=== PATIENT | female | born 1930 | race Caucasian/White ===

== ENCOUNTER 2016-05-14 10:59 | Emergency (ER) | payer OTHER, MEDICARE ==
[~2016-05-14] VITALS: Ht 154.9 cm; Wt 52.2 kg
[~2016-05-14 10:59] MED LIST: AMLODIPINE BES2.5 M1 PO; CALCIUM 600600 M1 PO; CENTRUM COMPLE1 EACH PO; CHILDREN'S ASPI81 M1 PO; CRESTOR20 M2 PO; DOXYCYCLINE MO100 MG PO; FISH OIL CONC1000 MG PO; GLUCOSAMINE500 M1 PO; HYDROCORTI2.5 %/30 G TOP; TIMOPTIC10 ML OD
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
--- NOTE | 2016-05-14 11:59 | CT SCAN REPORT ---
CT HEAD WITHOUT IV CONTRAST CT CERVICAL SPINE WITHOUT IV CONTRAST INDICATION: Fall. COMPARISON: None available. TECHNIQUE: Multidetector CT acquisitions of the head and cervical spine were obtained without IV contrast. Multiplanar reformats were acquired and utilized for image interpretation. FINDINGS: HEAD: There is no intracranial hemorrhage, hydrocephalus, extra-axial surface collection, midline shift, or other herniation pattern. Whittaker to white matter differentiation is diffusely maintained without evidence of an evolved acute territorial infarct. The basilar cisterns are preserved. Mild high right parietal scalp swelling. Empty sella. No acute osseous abnormality. The paranasal sinuses and the mastoid air cells are well-aerated. CERVICAL SPINE: There is grade 1 degenerative anterolisthesis of C4 on C5 and C7 on T1. Severe disc volume loss at C5-C6 and moderate disc volume loss at C6-C7. Degenerative changes at the atlantodental interval. Multilevel facet arthropathy. There is a nondisplaced linear fracture involving the anterior C1 ring. The remainder of the C1 ring is intact. No additional fractures. Favored pannus adjacent to the dens mildly indents the ventral thecal sac at C1-C2. The craniocervical and atlantoaxial articulations are normal. There is no prevertebral soft tissue swelling. No significant soft tissue abnormality within the neck. The visualized lung apices are clear. IMPRESSION: 1. No acute intracranial abnormality. There is mild high right parietal scalp swelling. 2. There is a nondisplaced linear fracture involving the anterior C1 ring. The remainder of the C1 ring is intact. No additional fractures. Multilevel cervical spondylosis.
[2016-05-14 12:02] LABS: ABSOLUTE BASOPHIL COUNT 0 /CUMM (0.0-0.2); ABSOLUTE EOSINOPHIL COUNT 0.1 /CUMM (0.0-0.7); ABSOLUTE GRANULOCYTE CT 3.4 /CUMM (1.4-6.5); ABSOLUTE LYMPH COUNT 1.1 /CUMM (1.2-3.4); ABSOLUTE MONOCYTE COUNT 0.4 /CUMM (0.10-0.60); BASOPHIL % 0.4 % (0.0-2.0); EOSINOPHIL % 1.1 % (0-5); GRANULOCYTE % 69.1 % (42.2-75.2); MEAN CORPUSCULAR HGB 29.9 PG (27.0-31.0); MEAN CORPUSCULAR HGB CONC 33.9 G/DL (33.0-37.0); MEAN CORPUSCULAR VOLUME 88.2 FL (81.0-99.0); MEAN PLATELET VOLUME 7.3 FL (7.4-10.4); PLATELET COUNT 215 /CUMM (130-400); RBC DISTRIBUTION WIDTH 12.5 % (11.5-14.5); RED BLOOD CELL CT 5.33 /CUMM (4.20-5.40); WHITE BLOOD CELL COUNT 4.9 /CUMM (4.8-10.8)
[2016-05-14] MEDS ORDERED: VITAMIN D35000 UNI1 PO (12:05)
[2016-05-14] MEDS ORDERED: SYSTANE 0.3-0.415 ML OPH (12:06)
[2016-05-14 18:16] VITALS: BP 132/68
== END 2016-05-14 18:17 ==
LOC: ERH 10:59
PROVIDERS: Physician Assistant
DX: S12.091A Other nondisplaced fracture of first cervical vertebra, initial encounter for closed fracture (principal); I10 Essential (primary) hypertension; Z87.891 Personal history of nicotine dependence; W19.XXXA Unspecified fall, initial encounter
CPT/HCPCS: 2000; 93005; 93010

== ENCOUNTER 2016-09-07 22:08 | Emergency (ER) | payer OTHER, MEDICARE ==
[~2016-09-07] VITALS: Ht 157.5 cm; Wt 53.5 kg
[~2016-09-07 22:08] MED LIST changes: +SYSTANE 0.3-0.415 ML OPH; +VITAMIN D35000 UNI1 PO
[2016-09-07 22:13] VITALS: BP 156/66
[2016-09-07] MEDS ORDERED: [UNRECOGNIZED DRUG - OTHER] OD (22:42)
[2016-09-07] MEDS ORDERED: GLUCOSAMINE &1 EAC1 PO (22:43)
[2016-09-07] MEDS ORDERED: OMEGA 3-6-9 11200 MG PO (22:43)
[2016-09-07] MEDS ORDERED: CLOBETASOL PROP15 G1 TOP (22:44)
[2016-09-07] MEDS ORDERED: CYCLOBENZAPRINE10 M1 PO (22:55)
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
== END 2016-09-07 23:01 ==
LOC: ERH 22:08
DX: S16.1XXA Strain of muscle, fascia and tendon at neck level, initial encounter (principal); X58.XXXA Exposure to other specified factors, initial encounter; Y92.9 Unspecified place or not applicable; Y93.9 Activity, unspecified

== ENCOUNTER 2016-09-08 09:16 | Emergency (ER) | payer OTHER, MEDICARE ==
[~2016-09-08] VITALS: Ht 157.5 cm; Wt 52.6 kg
[~2016-09-08 09:16] MED LIST changes: +CLOBETASOL PROP15 G1 TOP; +CYCLOBENZAPRINE10 M1 PO; +GLUCOSAMINE &1 EAC1 PO; +OMEGA 3-6-9 11200 MG PO; +[UNRECOGNIZED DRUG - OTHER] OD
--- NOTE | 2016-09-08 09:37 | ED AMS/SEIZURE/WEAK/DIZZY ---
History of Present Illness General Chief Complaint: General Adult Stated Complaint: SEEN LAST NO BETTER WEAKNESS Source: patient, family Exam Limitations: no limitations Vital Signs & Intake/Output Vital Signs & Intake/Output Vital Signs Date Time Temp Pulse Resp B/P B/P Pulse O2 O2 Flow FiO2 Mean Ox Delivery Rate 09/08 1144 97.6 78 16 137/60 97 Room Air 09/08 1135 97.2 09/08 1118 97.2 78 18 141/63 98 Room Air 09/08 0958 98 09/08 0920 97.0 85 18 127/73 96 Room Air Room Air ED Intake and Output 09/09 0000 09/08 1200 Intake Total Output Total Balance Patient 116 lb Weight Weight Standing Scale Measurement Method Allergies Coded Allergies: fish derived (Severe, SEEING SPOTS - YELLOWFIN TUNA CAUSED THROMBOSIS 09/07/16) Reconcile Medications Amlodipine Besylate 2.5 MG TABLET 1 TAB PO DAILY BP (Reported) Aspirin (Children's Aspirin) 81 MG TAB.CHEW 1 TAB PO DAILY HEART/BLOOD ( Reported) Cholecalciferol (Vitamin D3) (Vitamin D3) 5,000 UNIT TABLET 1 TAB PO DAILY SUPPLEMENT (Reported) Clobetasol Propionate 0.05 % OINT...G. 1 [place] TOP AD REYNAUDS (Reported) apply to affected area(s) Cyclobenzaprine HCl 10 MG TABLET 1 TAB PO TID PRN MUSCLE SPASM as needed for muscle spasm Fish Oil/Borage/Flax/Om3,6,9#1 ([place] 3-6-9 1,200 MG Softgel) 1,200 MG CAPSULE 1 CAP PO DAILY SUPPLEMENT (Reported) Gluc 2KCL/Chondr/Jl Hy/Hy AC (Glucosamine & Chondroitin Cap) (Unknown Strength ) CAPSULE (Unknown Dose) PO BID SUPPLEMENT (Reported) Multivitamin/Iron/Folic Acid (Centrum Complete Multivit Tab) 18 MG IRON-400 MCG TABLET 1 TAB PO DAILY SUPPLEMENT (Reported) Propylene Glycol/Peg 400 (Systane 0.3-0.4% Eye Drops) 0.3 %-0.4 % DROPS 1 GTT OPH 4 TIMES/DAY DRY EYE (Reported) Rosuvastatin Calcium (Crestor) 20 MG TABLET 1 TAB PO DAILY CHOLESTEROL ( Reported) Sodium Chloride (Sochlor) 5 % OINT...G. 1 [place] OD QPM RIGHT EYE (Reported) Timolol Maleate (Timoptic) 0.5 % DROPS 1 DROP OD QAM RIGHT EYE (Reported) Triage Note: TRIAGE: 86 Y/O MALE PRESENTS C/O 2/10 PAIN BEHIND LEFT EAR. REPORTS WAS SEEN HERE LAST NIGHT AND EVALUATED BY DR THAO. PATIENT REPORTS, "HE SAID IT MIGHT BE A MUSCLE SPASM RADIATING DOWN TOWARD JAW." Triage Nurses Notes Reviewed? yes HPI: 86-year-old female arrived to triage to room 6 for evaluation of lightheadedness , weakness that she experienced with position changes this morning. He was seen in the emergency department last night for an evaluation of left neck pain. She experienced a T1 fracture after a fall a few months ago and has been going through physical therapy. She received Flexeril last night while in the emergency department and went home. She has not taken any further medications besides her amlodipine this morning. When she got up this morning she felt lightheaded, weakness all over her body. It lasted a few minutes but then went away. She denies any chest pain or chest pressure. She reports she has a history of a left bundle branch block and has had a workup which was negative. She denies any shortness of breath. Her neck pain is coming back at this time. (KAI GOLDSMITH APRN) Past History Travel History Traveled to [place] past 21 day No Medical History Any Pertinent Medical History? see below for history EENT: cataracts, glaucoma Cardiovascular: hypertension, hyperlipidemia Gastrointestinal: HEMORROIDS Surgical History Surgical History: non-contributory Psychosocial History What is your primary language Grenadian Tobacco Use: Never used ETOH Use: denies use Illicit Drug Use: denies illicit drug use Family History Hx Contributory? No (KAI GOLDSMITH APRN) Review of Systems Review of Systems Constitutional: Reports: see HPI, weakness. EENTM: Denies: no symptoms. Respiratory: Denies: no symptoms. Cardiovascular: Denies: no symptoms. GI: Denies: no symptoms. Genitourinary: Denies: no symptoms. Musculoskeletal: Reports: see HPI, neck pain. Skin: Denies: no symptoms. Neurological/Psychological: Reports: weakness, other (LIGHTHEADEDNESS). Hematologic/Endocrine: Denies: no symptoms. Immunologic/Allergic: Denies: no symptoms. (KAI GOLDSMITH APRN) Physical Exam Physical Exam General Appearance: well developed/nourished, no apparent distress, alert, awake , comfortable Head: atraumatic, normal appearance Eyes: Bilateral: normal appearance, PERRL, EOMI. Ears, Nose, Throat: normal pharynx, normal ENT inspection Neck: tender lateral (LEFT LATERAL TENDERNESS, TIGHT) Respiratory: normal breath sounds, chest non-tender, no respiratory distress Cardiovascular: regular rate/rhythm Gastrointestinal: normal bowel sounds, soft, non-tender Back: normal inspection, normal range of motion Extremities: normal range of motion Neurologic/Psych: no motor/sensory deficits, awake, alert, oriented x 3, normal gait, normal mood/affect Skin: intact, normal color, warm/dry Core Measures ACS in differential dx? No CVA/TIA Diagnosis: No Severe Sepsis Present: No Septic Shock Present: No (KAI GOLDSMITH APRN) Progress Differential Diagnosis: dehydration, electrolyte imbalance, SIDE EFFECT OF FLEXERIL Plan of Care: Orders Procedure Date/time Status COMPREHENSIVE METABOLIC PANEL 09/08 936 Complete CBC WITHOUT DIFFERENTIAL 09/08 936 Complete Laboratory Tests 09/08/16 0947: Anion Gap 13, Estimated GFR > 60, BUN/Creatinine Ratio 28.3 H, Glucose 94, Calcium 9.5, Total Bilirubin 1.0, AST 30, ALT 43, Alkaline Phosphatase 75, Total Protein 6.7, Albumin 4.1, Globulin 2.6, Albumin/Globulin Ratio 1.6, CBC w Diff NO MAN DIFF REQ, RBC 4.77, MCV 88.6, MCH 29.6, RDW 12.7, MPV 7.2 L, Gran % 43.2 , Lymphocytes % 43.7, Monocytes % 10.8 H, Eosinophils % 1.8, Basophils % 0.5, Absolute Granulocytes 1.0 L, Absolute Lymphocytes 1.0 L, Absolute Monocytes 0.2, Absolute Eosinophils 0, Absolute Basophils 0, PUBS MCHC 33.5 Initial ED EKG: none (DUE TO H/O LBBB) Comments: 11:35 AM lightheadedness has resolved. She was ambulatory to the bathroom twice with no symptoms or side effects. Instructed her not to take the entire 10 mg of Flexeril she was given. Instructions will say take half or a quarter of the pills for pain or neck strain. Ibuprofen 400 mg 3 times a day with food. dr. bernstein aware of patient. (KAI GOLDSMITH APRN) Departure Departure Time of Disposition: 1130 Disposition: HOME OR SELF CARE Condition: Stable Clinical Impression Primary Impression: Light-headed feeling Secondary Impressions: Neck strain Qualifiers: Encounter type: initial encounter Qualified Code: S16.1XXA - Strain of muscle, fascia and tendon at neck level, initial encounter Referrals: ERICH WORTHY,ADITYA Hayward (PCP/Family) Additional Instructions: Please do not take entire Flexeril pill. Take half or a quarter of it as needed for muscle spasm, tightness in neck. Take ibuprofen 400 mg 3 times a day with food. Follow-up with Dr. Tran this week. Use heating pad to left side of neck 3-4 times a day. Departure Forms: Customer Survey General Discharge Information (KAI GOLDSMITH APRN) PA/DRIVER ENGINEER Co-Sign Statement Statement: ED Attending supervision documentation- [x] I saw and evaluated the patient. I have also reviewed all the pertinent lab results and diagnostic results. I agree with the findings and the plan of care as documented in the PA's/DRIVER ENGINEER's documentation. [] I have reviewed the ED Record and agree with the PA's/DRIVER ENGINEER's documentation. [] Additions or exceptions (if any) to the PAs/DRIVER ENGINEER's note and plan are summarized below: [] (JUSTINE WORTHY,SHANNON Martinez)
[2016-09-08 09:59] LABS: ABSOLUTE BASOPHIL COUNT 0 /CUMM (0.0-0.2); ABSOLUTE EOSINOPHIL COUNT 0 /CUMM (0.0-0.7); ABSOLUTE MONOCYTE COUNT 0.2 /CUMM (0.10-0.60); BASOPHIL % 0.5 % (0.0-2.0); EOSINOPHIL % 1.8 % (0-5); GRANULOCYTE % 43.2 % (42.2-75.2); HEMATOCRIT 42.2 % (37-47); MEAN CORPUSCULAR HGB 29.6 PG (27.0-31.0); MEAN CORPUSCULAR HGB CONC 33.5 G/DL (33.0-37.0); MEAN CORPUSCULAR VOLUME 88.6 FL (81.0-99.0); MEAN PLATELET VOLUME 7.2 FL (7.4-10.4); PLATELET COUNT 202 /CUMM (130-400); RBC DISTRIBUTION WIDTH 12.7 % (11.5-14.5); RED BLOOD CELL CT 4.77 /CUMM (4.20-5.40); WHITE BLOOD CELL COUNT 2.2 /CUMM (4.8-10.8)
[2016-09-08 11:44] VITALS: BP 137/60
== END 2016-09-08 11:47 ==
LOC: ERH 09:16
PROVIDERS: Nurse Practitioner Family
DX: S16.1XXA Strain of muscle, fascia and tendon at neck level, initial encounter (principal); R42 Dizziness and giddiness; X58.XXXA Exposure to other specified factors, initial encounter
CPT/HCPCS: 96360

== ENCOUNTER 2016-11-05 10:17 | Inpatient (IN) | payer OTHER, MEDICARE ==
[~2016-11-05] VITALS: Ht 154.9 cm; Wt 51.7 kg
--- NOTE | 2016-11-05 10:24 | NUR ---
86 YO FEMALE BIBA FROM HOME. PT HAD A SYNCOPLE EPISODE AT HOME. PT HAS RECENT CSPINE FX ON Apr. PER GASKET MAKER PT NOTED TO BE IN 3RD DEGREE HEART BLOCK. PT ARRIVES ALERT AND ORIENTED X3. HR 30s ON MONITOR, EKG IN PROGRESS. PT DENIES SOB,CP,ABD PAIN. PT NOTED WITH HEMATOMA TO BACK OF HEAD. NO ACTIVE BLEEDING. DR BASS TO BEDSIDE ON ARRIVAL.
--- NOTE | 2016-11-05 10:34 | ED GENERAL ADULT ---
History of Present Illness General Chief Complaint: Fall Stated Complaint: FALL Source: patient, EMS Exam Limitations: no limitations Vital Signs & Intake/Output Vital Signs & Intake/Output 11/05/16 10:30 AM 86-year-old female presents to the emergency department for syncope. Prehospital EKG shows third-degree heart block. The onset of the symptoms was abrupt, the duration was just today, the severity is significant as her symptoms required her to come to the emergency department for care she denies chest pain. Allergies Coded Allergies: fish derived (Severe, SEEING SPOTS - YELLOWFIN TUNA CAUSED THROMBOSIS 09/07/16) Reconcile Medications Amlodipine Besylate 2.5 MG TABLET 1 TAB PO DAILY BP (Reported) Aspirin (Children's Aspirin) 81 MG TAB.CHEW 1 TAB PO DAILY HEART/BLOOD ( Reported) Cholecalciferol (Vitamin D3) (Vitamin D3) 5,000 UNIT TABLET 1 TAB PO DAILY SUPPLEMENT (Reported) Clobetasol Propionate 0.05 % OINT...G. 1 [place] TOP AD REYNAUDS (Reported) apply to affected area(s) Cyclobenzaprine HCl 10 MG TABLET 1 TAB PO TID PRN MUSCLE SPASM as needed for muscle spasm Fish Oil/Borage/Flax/Om3,6,9#1 ([place] 3-6-9 1,200 MG Softgel) 1,200 MG CAPSULE 1 CAP PO DAILY SUPPLEMENT (Reported) Gluc 2KCL/Chondr/Jl Hy/Hy AC (Glucosamine & Chondroitin Cap) (Unknown Strength ) CAPSULE (Unknown Dose) PO BID SUPPLEMENT (Reported) Multivitamin/Iron/Folic Acid (Centrum Complete Multivit Tab) 18 MG IRON-400 MCG TABLET 1 TAB PO DAILY SUPPLEMENT (Reported) Propylene Glycol/Peg 400 (Systane 0.3-0.4% Eye Drops) 0.3 %-0.4 % DROPS 1 GTT OPH 4 TIMES/DAY DRY EYE (Reported) Rosuvastatin Calcium (Crestor) 20 MG TABLET 1 TAB PO DAILY CHOLESTEROL ( Reported) Sodium Chloride (Sochlor) 5 % OINT...G. 1 [place] OD QPM RIGHT EYE (Reported) Timolol Maleate (Timoptic) 0.5 % DROPS 1 DROP OD QAM RIGHT EYE (Reported) Triage Note: 86 YO FEMALE BIBA FROM HOME. PT HAD S SYNCOPLE EPISODE AT HOME. PT HAS RECENT CSPINE FX ON Apr. PER JAVA MANAGER PT NOTED TO BE IN 3RD DEGREE HEART BLOCK. 30s ON MONITOR, EKG IN PROGRESS. PT DENIES SOB,CP,ABD PAIN. PT NOTED WITH HEMATOMA TO BACK OF HEAD. NO ACTIVE BLEEDING. DR BASS TO BEDSIDE ON ARRIVAL. Triage Nurses Notes Reviewed? yes HPI: patient admitted to ICU Past History Travel History Traveled to [place] past 21 day No Medical History Any Pertinent Medical History? see below for history Neurological: NONE EENT: cataracts, glaucoma Cardiovascular: hypertension, hyperlipidemia Respiratory: NONE Gastrointestinal: HEMORROIDS Hepatic: NONE Renal: NONE Musculoskeletal: NONE Psychiatric: NONE Endocrine: NONE Blood Disorders: NONE Cancer(s): NONE [employer] SECURITY/Reproductive: NONE Surgical History Surgical History: non-contributory Psychosocial History What is your primary language Moroccan Tobacco Use: Quit >30 days ago ETOH Use: denies use Illicit Drug Use: denies illicit drug use Family History Hx Contributory? No Review of Systems Review of Systems Constitutional: Reports: no symptoms. EENTM: Reports: no symptoms. Respiratory: Reports: no symptoms. Cardiovascular: Reports: see HPI. Denies: chest pain. GI: Reports: no symptoms. Genitourinary: Reports: no symptoms. Musculoskeletal: Reports: no symptoms. Skin: Reports: no symptoms. Neurological/Psychological: Reports: no symptoms. Hematologic/Endocrine: Reports: no symptoms. Immunologic/Allergic: Reports: no symptoms. All Other Systems: Reviewed and Negative Physical Exam Physical Exam General Appearance: alert, awake, anxious, moderate distress Head: contusions, tenderness Eyes: Bilateral: normal appearance, PERRL, EOMI. Ears, Nose, Throat: normal pharynx Neck: limited range of motion Respiratory: chest non-tender, no respiratory distress Cardiovascular: BRADYCARDIA Peripheral Pulses: 3+ radial (R), 3+ radial (L) Gastrointestinal: non-tender Back: decreased range of motion Extremities: pedal edema Neurologic/Psych: awake, alert, oriented x 3 Skin: intact, normal color, warm/dry Core Measures ACS in differential dx? No CVA/TIA Diagnosis: No Severe Sepsis Present: No Septic Shock Present: No Progress Differential Diagnoses I considered the following diagnoses in my evaluation of the patient: [acs, sss, adverse drug reaction, lyme, conduction disease] Plan of Care: Orders Procedure Date/time Status Add-on Test (ER Only) 11/05 1045 Active OXYGEN SETUP (GEN) 11/05 1038 Active Telemetry/Respiratory Therapy Instructor 11/[address] HEAD WO IV CONTRAST 11/[address] CERV SPINE WO IV CONTRAST 11/05 1038 Active PARTIAL THROMBOPLASTIN TIME 11/05 1030 Active PROTHROMBIN TIME 11/05 1030 Active TROPONIN LEVEL 11/05 1026 Active COMPREHENSIVE METABOLIC PANEL 11/05 1026 Active CBC WITHOUT DIFFERENTIAL 11/05 1026 Complete EKG 11/05 1021 Active Laboratory Tests 11/05/16 1038: PT Cancelled, INR Cancelled 11/05/16 1030: Anion Gap 12, Estimated GFR > 60, BUN/Creatinine Ratio 26.7 H, Glucose 160 H, Calcium 9.7, Total Bilirubin 0.9, AST 38 H, ALT 52, Alkaline Phosphatase 86, Troponin I Pending, Total Protein 6.9, Albumin 4.5, Globulin 2.4, Albumin/ Globulin Ratio 1.9, CBC w Diff NO MAN DIFF REQ, RBC 4.61, MCV 88.8, MCH 30.2, RDW 12.9, MPV 7.6, Gran % 58.1, Lymphocytes % 34.2, Monocytes % 6.0, Eosinophils % 1.2, Basophils % 0.5, Absolute Granulocytes 2.8, Absolute Lymphocytes 1.7, Absolute Monocytes 0.3, Absolute Eosinophils 0.1, Absolute Basophils 0, PUBS MCHC 33.9 Initial ED EKG: THIRD DEGREE HEART BLOCK Departure Departure Disposition: STILL A PATIENT Condition: Stable Clinical Impression Primary Impression: Bradycardia Secondary Impressions: Third degree heart block Referrals: ERICH WORTHY,ADITYA Hayward (PCP/Family) Departure Forms: Customer Survey General Discharge Information Admission Note Spoke With: GARTH WORTHY,[facility] Documentation of Exam: Documentation of any treatments & extenuating circumstances including Concerns Regarding Discharge (functional status, medication knowledge or non-compliance, living conditions, etc.) that warrant an admission rather than observation: [ Patient needs admission to the ICU for telemetry monitoring, serial troponins, possible transcutaneous pacemaker, pacemaker placement] Critical Care Note Critical Care Note Critical Care Time: 30-74 min
[2016-11-05 10:40] LABS: ABSOLUTE BASOPHIL COUNT 0 /CUMM (0.0-0.2); ABSOLUTE EOSINOPHIL COUNT 0.1 /CUMM (0.0-0.7); ABSOLUTE GRANULOCYTE CT 2.8 /CUMM (1.4-6.5); ABSOLUTE LYMPH COUNT 1.7 /CUMM (1.2-3.4); ABSOLUTE MONOCYTE COUNT 0.3 /CUMM (0.10-0.60); BASOPHIL % 0.5 % (0.0-2.0); EOSINOPHIL % 1.2 % (0-5); GRANULOCYTE % 58.1 % (42.2-75.2); MEAN CORPUSCULAR HGB 30.2 PG (27.0-31.0); MEAN CORPUSCULAR HGB CONC 33.9 G/DL (33.0-37.0); MEAN CORPUSCULAR VOLUME 88.8 FL (81.0-99.0); MEAN PLATELET VOLUME 7.6 FL (7.4-10.4); PLATELET COUNT 192 /CUMM (130-400); RBC DISTRIBUTION WIDTH 12.9 % (11.5-14.5); RED BLOOD CELL CT 4.61 /CUMM (4.20-5.40); WHITE BLOOD CELL COUNT 4.9 /CUMM (4.8-10.8)
--- NOTE | 2016-11-05 10:43 | NUR ---
XRAY AT THE BEDSIDE
--- NOTE | 2016-11-05 10:50 | NUR ---
PT TO CT SCAN VIA STRETCHER ON BUCKLE ATTACHING MACHINE OPERATOR WITH LUL ORTEGA
--- NOTE | 2016-11-05 10:58 | RADIOLOGY REPORT ---
EXAMINATION: XR PORTABLE CHEST CLINICAL INFORMATION: Syncope. COMPARISON: Chest 2006 TECHNIQUE: Portable frontal view of the chest was obtained. FINDINGS: Both lungs are well-expanded and clear of acute pneumonic process. The heart size and pulmonary vascularity is normal. No gross bony abnormality seen except for mild spondylosis. IMPRESSION: Unremarkable chest exam.
--- NOTE | 2016-11-05 11:03 | NUR ---
LAB NEEDS RE DRAW OF BLUE TOP TUBE
--- NOTE | 2016-11-05 11:15 | NUR ---
TAKEN TO CT SCAN, ON STRETCHER AND MONITOR PT PLEASANT, CONVERSANT THROUGHOUT. STATES SHE HAD A FRACTURED NECK IN APR AND WITH IN A COLLAR FOR 12 WEEKS; BELIEVES THE COLLAR CAME OFF IN SEPTEMBER AND PT STATES SHE WAS DOING WELL UNTIL FALL THIS MORNING. DENIES ANY CHEST PAIN OR SOB. HEART RATE RANGES FROM 26-38 ON MONITOR. BACK TO ROOM, DR BASS AT BEDSIDE FOR RE EVAL
--- NOTE | 2016-11-05 11:19 | NUR ---
REDRAW DONE BY THIS MST AND SENT TO LAB (BLUE)
--- NOTE | 2016-11-05 11:26 | NUR ---
DR BASS AT BEDSIDE - TESTED PACERMAKER TO GET CAPTURE IN THE EVENT PT DETERIORATES. PT CAPTURES WITH 100MEV. PACED FOR APPROX 1 MIN AND THEN STOPPED. HR BACK TO 20'S-30'S. REMAINS AWAKE, ALERT AND CONVERSANT DR LIANG AT THE BEDSIDE DR HERRMANN ALSO AT THE BEDSIDE ANTICIPATE TRANSFER TO OR FOR PACEMAKER PLACEMENT
--- NOTE | 2016-11-05 11:35 | CT SCAN REPORT ---
EXAMINATION: CT HEAD AND CT CERVICAL SPINE. CLINICAL INFORMATION: Syncope, head trauma. COMPARISON: CT cervical spine 07/27/2016. CT head 05/14/2016. TECHNIQUE: 5 mm thin axial into 2.5 mm thin coronal images of brain were obtained. Subsequently 2.5 mm thin axial and reformatted 2 mm thin coronal and sagittal images of cervical spine were performed. Dose 845. FINDINGS: Brain: There is no acute intra-axial, extra-axial bleed, masses or midline shift. The lateral ventricles are symmetrical in size and configuration but mildly enlarged. Mild periventricular hypodensity seen in both cerebral hemispheres without mass effect. Bone windows reveal no calvarial abnormality. Bilateral paranasal sinuses and bilateral mastoid air sinuses are well-aerated. There is no scalp soft tissue swelling. Cervical spine: There is mild straightening of cervical lordosis. There is grade 1 anterolisthesis C4 over C5 and C7 over T1. Mild loss of C5-C6 and C6-C7 disc heights with spondylosis is noted. Moderate bilateral C3-C4, right C4-C5 and C5-C6 facet joint arthropathy is noted. There is no visible acute fracture, dislocation or subluxation. The prevertebral and paravertebral soft tissues are normal. The airway throughout the neck is widely patent. The lung apices are clear. Visualized bilateral and parotid glands are unremarkable. There is punctate calcifications in the right submandibular gland. IMPRESSION: No acute intracranial process seen. Age-related cerebral atrophy with chronic small vessel ischemic changes. Grade 1 anterolisthesis C4 over C5 and C7 over T1. There are degenerative disc changes with posterior spondylosis C5-C6 and C6-C7 disc levels. No visible acute fracture or dislocation seen in cervical spine.
--- NOTE | 2016-11-05 11:45 | Admission Certification ---
Admission Certification Certification Statement - As attending physician, I certify that at the time of - admission, based on clinical presentation, severity of - symptoms, need for further diagnostic testing and - therapeutic interventions, and risk of adverse outcomes - without in-hospital treatment, in my clinical assessment, - this patient requires an acute hospital stay for a minimum - of two nights or longer. I have also considered psychsocial - factors such as support system, advanced age, financial - issues, cognitive issues, and failed out-patient treatments, - past re-admission history, safety of patient, and lack of - compliance as applicable. Specific rationale supporting this admission is: Syncope with advanced heart block; requires ICU telemetry monitoring and Pacemaker Rohan Helms MD [facility]
[2016-11-05 11:50] LABS: PT 12.1 SEC (9.4-12.5); PTT 31 SEC (25-37)
--- NOTE | 2016-11-05 11:54 | NUR ---
CARNEY PLACED PER MD BASS. IMMEDIATELY DRAINING 100 ML CLEAR YELLOW URINE. PRE OP SCRUB COMPLETED PT UNABLE TO REMOVE 2 RINGS ON L 4TH FINGER. OR TO BE NOTIFIED OF SAME NECKLACE AND EARRING AND 1 RING HANDED TO DAUGHTER IN LAW AT THE BEDSIDE AWAITING OR
--- NOTE | 2016-11-05 11:59 | NUR ---
DR BASS INTO REVIEW RESULTS OF CT SCAN C COLLAR REMOVED BY
--- NOTE | 2016-11-05 12:30 | NUR ---
UNABLE TO GET URINE SAMPLE FROM CARNEY PRIOR TO GOING TO OR. URINE ONLY IN TUBING OF CARNEY. TRANSPORTED TO OR ON MONITOR WITH RN RC KULKARNI AND THIS RN PT REMAINS ALERT AND ORIENTED, CONVERSANT THROUGHOUT WITH NO COMPLAINTS HR 20'S-30'S. REPORT GIVEN TO OR STAFF; ANESTHESIA STAFF ALL PAPERWORK PROVIDED TO STAFF OR STAFF AWARE PT HAS WEDDING BAND IN PLACE.
--- NOTE | 2016-11-05 14:57 | RADIOLOGY REPORT ---
EXAMINATION: XR PORTABLE CHEST CLINICAL INFORMATION: Follow-up pacemaker insertion. COMPARISON: Preprocedure exam 11/05/2016 10:35 AM TECHNIQUE: Portable frontal view of the chest was obtained. Exam assigned to this succession number is labeled 2:24 PM FINDINGS: There is a new left-sided prepectoral dual-lead pacer identified with its tips overlying the right atrium and right ventricle via a left subclavian approach. The cardiomediastinal silhouette is otherwise stable appearing. The lungs and pleural spaces appear clear without evidence of congestion, consolidation, or significant appearing effusion or atelectasis. There is no evidence of pneumothorax or pulmonary edema. Included osseous structures demonstrate fairly advanced degenerative changes in the glenohumeral joints bilaterally. IMPRESSION: Post procedural changes without evidence of complication.
--- NOTE | 2016-11-05 15:11 | RADIOLOGY REPORT ---
EXAMINATION:\H\ \N\Chest, C-arm imaging CLINICAL INFORMATION: Pacemaker placement. COMPARISON: Chest x-ray 11/05/2016 TECHNIQUE: C-arm imaging of chest. Dose: 1.34 mgym2 Fluoroscopy time: 8.2 minutes. Number of images: 3 FINDINGS: Spot views obtained over the cardiac silhouette shows placement of dual-lead pacemaker in right atrium and right ventricle. IMPRESSION: Placement of pacemaker leads in right atrium and right ventricle.
--- NOTE | 2016-11-05 15:15 | History & Physical ---
HARSH CARRILLO 11/05/16 1503: General Information and HPI Source of Information: patient Exam Limitations: no limitations History of Present Illness: She is 86 year old very pleasant lady with PMH of HTN, HLD and Arthritis BIBA after she had a syncopal episode at home. According to patient she was arranging her clothes and all of a sudden she felt funny and next thing she remembers found herself on floor. She does not remember exactly presyncopal symptoms but after waking up she was feeling better dizzy. per patient she fell down on her back and hit back of her head. Her called 911. Per paramedics EKG showed complete heart block. Upon arrival to ER her temperature was 97.5, pulse 26, respiratory rate 18, blood pressure 112/15 oxygen saturation 97% on room air. She was alert, awake and oriented 3. She denied any chest pain, shortness of breath, abdominal pain or nausea. Labs including CBC, CMP and Coags unremarkable. 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 CXR was unremarkable. CT head and cervical spine CT did not show any acute process. After returning from CT scan pacer pads were applied. Paced for 1 min and HR again dropped down to 20-30. Jim Helms MD was called and patient was emergently taken to or for permanent pacemaker placement. I saw the patient in PACU after pacemaker placement. She was complaining of mild pain at the site of pacemaker placement. Currently she denies any chest pain or discomfort, dizziness or lightheadedness, nausea. She also denies any headache, vision changes, weakness or numbness of any part of her body, any change in urinary or bowel habits. She lives with her . Independent for ADLs and IADLs. She has 5 kids. She is a retired RN. Surgical history significant for cholecystectomy, hysterectomy and bilateral cataract surgery. She smoked at young age and quit 60 years ago. Drinks wine occasionally. Denies use of illicit drugs. Please note patient had syncopal episode this year in April while she was on exercise machine. According to patient at that time she had a funny feeling, fell down and lost consciousness. She had C-spine fracture at that time. Had a C-spine collar for [address] Woo. She follows Omar Willis MD as an outpatient. She had EKG, ultrasound and Holter monitor for 24 hours in August this year and no significant abnormality was noted. Allergies/Medications Allergies: Coded Allergies: fish derived (Severe, SEEING SPOTS - YELLOWFIN TUNA CAUSED THROMBOSIS 09/07/16) Home Med list Amlodipine Besylate 2.5 MG TABLET 1 TAB PO DAILY BP (Reported) Aspirin (Children's Aspirin) 81 MG TAB.CHEW 1 TAB PO DAILY HEART/BLOOD ( Reported) Cholecalciferol (Vitamin D3) (Vitamin D3) 5,000 UNIT TABLET 1 TAB PO DAILY SUPPLEMENT (Reported) Fish Oil/Borage/Flax/Om3,6,9#1 ([place] 3-6-9 1,200 MG Softgel) 1,200 MG CAPSULE 1 CAP PO DAILY SUPPLEMENT (Reported) Gluc 2KCL/Chondr/Jl Hy/Hy AC (Glucosamine & Chondroitin Cap) (Unknown Strength ) CAPSULE (Unknown Dose) PO BID SUPPLEMENT (Reported) Multivitamin/Iron/Folic Acid (Centrum Complete Multivit Tab) 18 MG IRON-400 MCG TABLET 1 TAB PO DAILY SUPPLEMENT (Reported) Propylene Glycol/Peg 400 (Systane 0.3-0.4% Eye Drops) 0.3 %-0.4 % DROPS 1 GTT OPH 4 TIMES/DAY DRY EYE (Reported) Rosuvastatin Calcium (Crestor) 20 MG TABLET 1 TAB PO DAILY CHOLESTEROL ( Reported) Sodium Chloride (Sochlor) 5 % OINT...G. 1 [place] OD QPM RIGHT EYE (Reported) Timolol Maleate (Timoptic) 0.5 % DROPS 1 DROP OD QAM RIGHT EYE (Reported) Compliance With Home Meds: GOOD Past History Travel History Traveled to [place] past 21 day No Medical History Neurological: NONE EENT: cataracts, glaucoma Cardiovascular: hypertension, hyperlipidemia Respiratory: NONE Gastrointestinal: HEMORROIDS Hepatic: NONE Renal: NONE Musculoskeletal: NONE Psychiatric: NONE Endocrine: NONE Blood Disorders: NONE Cancer(s): NONE HISTOLOGY TECHNICIAN/Reproductive: NONE Surgical History Surgical History: cholecystectomy, hysterectomy, cataract sx Past Family/Social History Family History Relations & Conditions if any MOTHER (DM, HTN). FATHER (stroke). Grandfather (DM). Psychosocial History Who Do You Live With? spouse Services at Home: None Primary Language: Chinese Smoking Status: Former Smoker ETOH Use: occasional use Illicit Drug Use: denies illicit drug use Functional Ability ADLs Independent: dressing, eating, toileting, bathing. Ambulation: independent IADLs Independent: shopping, housework, finances, food prep, telephone, transportation , medication admin. Employment History Employment Retired Profession/Employer controls project engineer of Systems Review of Systems Constitutional: Reports: see HPI. Exam & Diagnostic Data Last 24 Hrs of Vital Signs/I&O Vital Signs Date Time Temp Pulse Resp B/P B/P Pulse O2 O2 Flow FiO2 Mean Ox Delivery Rate 11/05 1140 97.5 26 18 112/50 94 Room Air 11/05 1128 97 Room Air Intake & Output 11/05 1600 11/05 0800 11/05 0000 Intake Total Output Total Balance Patient 114 lb Weight Weight Reported by Patient Measurement Method Physical Exam General Appearance Alert, Oriented X3, Cooperative, No Acute Distress Skin lipoma on back of her right shoulder HEENT dry mucous membranes Neck Supple Cardiovascular Regular Rate, No Murmurs Lungs Clear to Auscultation Abdomen Normal Bowel Sounds, Soft, No Tenderness Neurological Normal Speech, Strength at 5/5 X4 Ext, Sensation Intact, Cranial Nerves 3-12 NL Extremities No Edema Last 24 Hrs of Labs/Tj: Laboratory Tests 11/05/16 1116: PT 12.1, INR 1.15, APTT 31 11/05/16 1038: PT Cancelled, INR Cancelled 11/05/16 1030: Anion Gap 12, Estimated GFR > 60, BUN/Creatinine Ratio 26.7 H, Glucose 160 H, Calcium 9.7, Total Bilirubin 0.9, AST 38 H, ALT 52, Alkaline Phosphatase 86, Troponin I < 0.01, Total Protein 6.9, Albumin 4.5, Globulin 2.4, Albumin/ Globulin Ratio 1.9, CBC w Diff NO MAN DIFF REQ, RBC 4.61, MCV 88.8, MCH 30.2, RDW 12.9, MPV 7.6, Gran % 58.1, Lymphocytes % 34.2, Monocytes % 6.0, Eosinophils % 1.2, Basophils % 0.5, Absolute Granulocytes 2.8, Absolute Lymphocytes 1.7, Absolute Monocytes 0.3, Absolute Eosinophils 0.1, Absolute Basophils 0, PUBS MCHC 33.9 Microbiology 11/05 1215 URINE ROUT: Urine Culture - ORD Assessment/Plan Assessment: She is 86 year old very pleasant lady with PMH of HTN, HLD and Arthritis. Upon arrival to ER her temperature was 97.5, pulse 26, respiratory rate 18, blood pressure 112/15 oxygen saturation 97% on room air. She was alert, awake and oriented 3. She denied any chest pain, shortness of breath, abdominal pain or nausea. Labs including CBC, CMP and Coags unremarkable. 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 CXR was unremarkable. CT head and cervical spine CT did not show any acute process. Complete heart block status post dual chamber pacemaker placement. Not on any AV marcos blockers at home. Postprocedure EKG showed paced rhythm. PLAN * Close ICU monitoring * Watch for arrhythmias * Serial EKGs and troponins * ? Echocardiogram * Follow cardio recommendations * Adequate pain management * Will hold all of her home medications for now * Check TFTs * Heart healthy diet * Alps for DVT prophylaxis * DNR/DNI (Organ Donor) As Ranked By This Provider Problem List: 1. Third degree heart block 2. Bradycardia Core Measures/Miscellaneous Acute Coronary Syndrome ACS Diagnosis: No Cerebrovascular Accident CVA/TIA Diagnosis: No Congestive Heart Failure CHF Diagnosis: No VTE (View Protocol) VTE Risk Factors: Acute medical illness, Age > 40 [facility] prophylaxis d/t: No contraindications No VTE Pharm Prophylaxis d/t: No contraindications VTE Diagnosis: No VTE Type: NONE VTE Confirmed by (Test): NONE Sepsis (View Protocol) Severe Sepsis Present: No Septic Shock Septic Shock Present: No Miscellaneous Documentation Attending Case Discussed With: Dr. Helms Primary Care Physician: ADITYA JUNG MD Patient sees these Specialists Dr. Omar Perez Level of Patient Care: Critical Care (CRI) Consults Needed: Consulting Specialty: Cardiology GARTH WORTHY,[facility] 11/05/16 5124: Attending MD Review Statement Attending Statement Attending Statement: examined this patient, discuss w/resident/PA/ROLLER SKATER, discussed with family, reviewed EMR data (avail), discussed with nursing, reviewed images, amended to note (see my note)
[2016-11-05 16:00] VITALS: BP 139/68
--- NOTE | 2016-11-05 16:06 | PN- Att Addend ---
Attending Addendum Attending Brief Note I have personally seen and examined this patient earlier today in the emergency room. The patient presented with an episode of sudden syncope and was found to have evidence of high-grade heart block; initially Mobitz type 2 on the ECG with periods of complete heart block with bradycardia on telemetry monitoring. I personally had an extensive discussion with the patient and her family regarding the risks versus benefits of permanent pacemaker and we are all in agreement that the benefits of a permanent pacemaker clearly outweigh the risks at this time. I have personally discussed the case with Dr. Paulino and Dr. Gonzáles and our plan is to proceed with permanent pacemaker today. Of note the patient is not on any outpatient medications that would be contributing to her conduction disease and review of previous medical records does show evidence of prior conduction disease which has likely now progressed. She is fortunately hemodynamically stable and will be closely monitored following the permanent pacemaker. She will be maintained on transcutaneous pacer pads until the permanent pacemaker is completed. Time spent in critical care was approximately 40 minutes. Rohan Helms MD [facility]
--- NOTE | 2016-11-05 17:00 | PN- Thoracic Surgery ---
Subjective Subjective: POST OP CHECK No cp/sob/palpitations. HR in 80s, paced. some discomfort at incision. no other complaints Objective Vital Signs and I&Os Vital Signs Date Time Temp Pulse Resp B/P B/P Pulse O2 O2 Flow FiO2 Mean Ox Delivery Rate 11/05 1140 97.5 26 18 112/50 94 Room Air 11/05 1128 97 Room Air Intake & Output 11/05 1600 11/05 0800 11/05 0000 11/04 1600 11/04 0800 11/04 0000 Intake Total Output Total Balance Patient 114 lb Weight Weight Reported by Patient Measurement Method Physical Exam: GEN: NAD CARD: s1s2 rate in 80s PULM: CTAB EXT: calves soft nt bl Assessment/Plan Assessment/Plan A: POD0 sp PPM insertion for complete heart block, now with paced rhythm in 80s. P: prn pain meds for incisional pain abx x23hr ppx postop care per primary team will dw attending Core Measures/Miscellaneous Venous Thromboembolism VTE Risk Factors: Acute medical illness VTE Contraindications: No Contraindications VTE Diagnosis: No VTE Type: NONE VTE Confirmed by (Test): NONE Beta Víctor Is Beta Víctor a Home Med? No Antibiotics Is Patient on Antibiotics? Yes If Yes: prophylaxis
--- NOTE | 2016-11-05 17:13 | Cons- Thoracic Surgery ---
General Information and HPI Consulting Request Date of Consult: 11/05/16 Requested By: Jim Helms MD Reason for Consult: Third-degree heart block for permanent pacemaker placement Source of Information: patient, family, old records, PCP Exam Limitations: no limitations History of Present Illness: The patient is an 86-year-old woman who came in after syncopal episode at home. She was working and laundry and found herself on the floor. She fell down and did hit the back of her head. She is brought to the emergency room and found to be in third-degree heart block. She has a ventricular rate of 25. Emergency cardiothoracic surgical evaluation is asked for permanent pacemaker placement. Allergies/Medications Allergies: Coded Allergies: fish derived (Severe, SEEING SPOTS - YELLOWFIN TUNA CAUSED THROMBOSIS 09/07/16) Home Med List: Amlodipine Besylate 2.5 MG TABLET 1 TAB PO DAILY BP (Reported) Aspirin (Children's Aspirin) 81 MG TAB.CHEW 1 TAB PO DAILY HEART/BLOOD ( Reported) Cholecalciferol (Vitamin D3) (Vitamin D3) 5,000 UNIT TABLET 1 TAB PO DAILY SUPPLEMENT (Reported) Fish Oil/Borage/Flax/Om3,6,9#1 ([place] 3-6-9 1,200 MG Softgel) 1,200 MG CAPSULE 1 CAP PO DAILY SUPPLEMENT (Reported) Gluc 2KCL/Chondr/Jl Hy/Hy AC (Glucosamine & Chondroitin Cap) (Unknown Strength ) CAPSULE (Unknown Dose) PO BID SUPPLEMENT (Reported) Multivitamin/Iron/Folic Acid (Centrum Complete Multivit Tab) 18 MG IRON-400 MCG TABLET 1 TAB PO DAILY SUPPLEMENT (Reported) Propylene Glycol/Peg 400 (Systane 0.3-0.4% Eye Drops) 0.3 %-0.4 % DROPS 1 GTT OPH 4 TIMES/DAY DRY EYE (Reported) Rosuvastatin Calcium (Crestor) 20 MG TABLET 1 TAB PO DAILY CHOLESTEROL ( Reported) Sodium Chloride (Sochlor) 5 % OINT...G. 1 [place] OD QPM RIGHT EYE (Reported) Timolol Maleate (Timoptic) 0.5 % DROPS 1 DROP OD QAM RIGHT EYE (Reported) Current Medications: Current Medications Sig/Beth Start time Last Medication Dose Route Stop Time Status Admin Acetaminophen 650 MG Q6P PRN 11/05 1600 AC PO Cefazolin Sodium 2 GM IQ8 11/05 2200 AC N/A 1 UNIT IV 11/06 0829 Oxycodone/ 1 TAB Q6P PRN 11/05 1630 AC Acetaminophen PO Oxycodone/ 2 TAB Q6P PRN 11/05 1630 AC Acetaminophen PO Past History Medical History Neurological: NONE EENT: cataracts, glaucoma Cardiovascular: hypertension, hyperlipidemia Respiratory: NONE Gastrointestinal: HEMORROIDS Hepatic: NONE Renal: NONE Musculoskeletal: NONE Psychiatric: NONE Endocrine: NONE Blood Disorders: NONE Cancer(s): NONE TIME STUDY CLERK/Reproductive: NONE Surgical History Pertinent Surgical History: cholecystectomy, hysterectomy, cataract sx Family History Relations & Conditions If Any: MOTHER (DM, HTN). FATHER (stroke). Grandfather (DM). Psychosocial History Who Do You Live With? spouse Services at Home: None Primary Language: [place] Citizen Smoking Status: Former Smoker ETOH Use: occasional use Illicit Drug Use: denies illicit drug use Functional Ability ADLs Independent: dressing, eating, toileting, bathing. Ambulation: independent IADLs Independent: shopping, housework, finances, food prep, telephone, transportation , medication admin. Employment History Employment: Retired Profession/Employer: associate accountant of Systems Review of Systems: Review of systems notable for the syncopal episode. She had no presyncopal warning. She woke up on the floor. She is complaining now of some pain in the back of her head. She had a second episode when she was turned in the CT scanner evaluating her with a head CT. She has had no palpitations. She had no nausea or vomiting. She has had no chest pain. The respiratory 12 point review of systems unremarkable. Exam & Diagnostic Data Vital Signs and I&O Vital Signs Date Time Temp Pulse Resp B/P B/P Pulse O2 O2 Flow FiO2 Mean Ox Delivery Rate 11/05 1140 97.5 26 18 112/50 94 Room Air 11/05 1128 97 Room Air Intake & Output 11/05 1600 11/05 0800 11/05 0000 11/04 1600 11/04 0800 11/04 0000 Intake Total Output Total Balance Patient 114 lb Weight Weight Reported by Patient Measurement Method Physical Exam: On physical examination she is lying in bed with a neck brace in place. She is alert and oriented and very engaging and interactive. Her skin is warm and well perfused no suspicious lesions noted. The sclerae are anicteric and mucous members are moist. There is no cervical or subclavicular lymphadenopathy. Breath sounds clear full bilaterally. Her heart shows a very slow heart rate of 20-25 bpm. Her carotid pulse is very strong. There are no murmurs or sounds. Her abdomen is soft nontender with no masses. The periphery shows no cyanosis clubbing or edema. Her neurologic exam is grossly normal motor and sensory function. Last 24 Hours of Labs: Laboratory Tests 11/05 11/05 11/05 1116 1038 1030 Chemistry Sodium (137 - 145 mmol/L) 140 Potassium (3.5 - 5.1 mmol/L) 3.7 Chloride (98 - 107 mmol/L) 103 Carbon Dioxide (22 - 30 mmol/L) 26 Anion Gap (5 - 16) 12 BUN (7 - 17 mg/dL) 16 Creatinine (0.5 - 1.0 mg/dL) 0.6 Estimated GFR (>60 ml/min) > 60 BUN/Creatinine Ratio (7 - 25 %) 26.7 H Glucose (65 - 99 mg/dL) 160 H Calcium (8.4 - 10.2 mg/dL) 9.7 Total Bilirubin (0.2 - 1.3 mg/dL) 0.9 AST (14 - 36 U/L) 38 H ALT (9 - 52 U/L) 52 Alkaline Phosphatase (<127 U/L) 86 Troponin I (< 0.11 ng/ml) < 0.01 Total Protein (6.3 - 8.2 g/dL) 6.9 Albumin (3.5 - 5.0 g/dL) 4.5 Globulin (1.9 - 4.2 gm/dL) 2.4 Albumin/Globulin Ratio (1.1 - 2.2 %) 1.9 Coagulation PT (9.4 - 12.5 SEC) 12.1 Cancelled INR (0.90 - 1.19) 1.15 Cancelled APTT (25 - 37 SEC) 31 Hematology CBC w Diff NO MAN DIFF REQ WBC (4.8 - 10.8 /CUMM) 4.9 RBC (4.20 - 5.40 /CUMM) 4.61 Hgb (12.0 - 16.0 G/DL) 13.9 Hct (37 - 47 %) 41.0 MCV (81.0 - 99.0 FL) 88.8 MCH (27.0 - 31.0 PG) 30.2 RDW (11.5 - 14.5 %) 12.9 Plt Count (130 - 400 /CUMM) 192 MPV (7.4 - 10.4 FL) 7.6 Gran % (42.2 - 75.2 %) 58.1 Lymphocytes % (20.5 - 51.1 %) 34.2 Monocytes % (1.7 - 9.3 %) 6.0 Eosinophils % (0 - 5 %) 1.2 Basophils % (0.0 - 2.0 %) 0.5 Absolute Granulocytes (1.4 - 6.5 /CUMM) 2.8 Absolute Lymphocytes (1.2 - 3.4 /CUMM) 1.7 Absolute Monocytes (0.10 - 0.60 /CUMM) 0.3 Absolute Eosinophils (0.0 - 0.7 /CUMM) 0.1 Absolute Basophils (0.0 - 0.2 /CUMM) 0 PUBS MCHC (33.0 - 37.0 G/DL) 33.9 Assessment/Plan Assessment/Plan The patient is an 86-year-old woman with third degree heart block and a heart rate of 20. She did have breakfast this morning but I spoken to anesthesia and I think we need to go to the operating room as soon as a room is available. There will be a risk of aspiration because of her having (morning but I explained to the family and the patient that we cannot take her risk given her extremely slow current heart rate. She has percutaneous pads on and it does capture at a current of 110 mA. This benefits of permanent pacemaker placement explained to the patient and the family and the understand and agree. We will proceed as soon as the operating room is available. Consult Acknowledgment - Thank you for your consult request.
--- NOTE | 2016-11-05 17:18 | Operative Report ---
Operative/Inv Procedure Report Surgery Date: 11/05/16 Name of Procedure: MRI compatible dual-chamber pacemaker Pre-Operative Diagnosis: Third-degree heart block Post-Operative Diagnosis: Same Estimated Blood Loss: scant Surgeon/Managing Broker: MONTEZ WORTHY,ANABELLE Quick JR Anesthesia: general endotracheal tube Operative/Procedure Note Note: After placement of monitoring lines and induction of general anesthesia the patient became even more bradycardic with a heart rate of 15. The percutaneous pacemaker was started and she did capture intermittently with a current of 150 mA and a heart rate of 70 providing an adequate pulse and blood pressure. Her left chest was then prepped and draped in a sterile fashion. An incision was made in the deltopectoral groove and carried down to pretty pectoralis fascia. There was no cephalic vein seen so the patient was placed in Trendelenburg position and the left subclavian vein was cannulated percutaneously with a wire passed into the right atrium under fluoroscopic guidance. A 9 Citizen Of [place] sheath dilator was passed over the wire and the wire was retained. A Medtronic lead model #[id number] was then advanced into the pulmonary artery under fluoroscopic guidance and withdrawn into the right ventricular cavity. The pacing threshold was at 0.5 V with a current of 0.8 mA and an impedance of 1100 ohms. Measured because of the extremely slow heart rate. At this point the patient was placed in VVI mode and was paced at a minimum rate of 60 from that point on and the percutaneous pacemaker was turned off. A 7 Citizen Of [place] sheath dilator was then passed over the retained wire and a Medtronic atrial lead model #[id number] was then advanced to the right atrium and positioned in the right atrial appendage with a preformed curve to the lead. P waves were measured at 1.3 mV. The pacing threshold was at 0.7 V with a current of 0.8 mA and impedance of 613 ohms. A suture was placed around the subcutaneous tunnel for good hemostasis. The leads were then secured to prepectoralis fascia with Ethibond sutures. The leads were connected to an MRI compatible dual-chamber pacemaker Medtronic model number A2 DR 01. A pacemaker pocket was formed above the prepectoralis fascia and hemostasis was achieved with the electrocautery. The pocket was flushed with antibiotic irrigation. The wound was closed in layers deep Vicryl suture followed by running Vicryl subarticular suture. The patient tolerated the procedure well and was brought to recovery room awake and extubated in stable condition. CC: GARTH WORTHY,MEENA
--- NOTE | 2016-11-05 18:43 | NUR ---
PT HAS HAD ONLY 20ML URINE OUTPUT SINCE ARRIVAL ON FLOOR AT 1630, NOTIFIED WILL CONT TO MON.
[2016-11-06] VITALS: BP 130/68
[2016-11-06 05:20] LABS: ABSOLUTE BASOPHIL COUNT 0 /CUMM (0.0-0.2); ABSOLUTE EOSINOPHIL COUNT 0.1 /CUMM (0.0-0.7); ABSOLUTE MONOCYTE COUNT 0.4 /CUMM (0.10-0.60); BASOPHIL % 0.3 % (0.0-2.0); EOSINOPHIL % 1.7 % (0-5); GRANULOCYTE % 67.4 % (42.2-75.2); HEMATOCRIT 38.5 % (37-47); MEAN CORPUSCULAR HGB 30.2 PG (27.0-31.0); MEAN CORPUSCULAR HGB CONC 33.9 G/DL (33.0-37.0); MEAN CORPUSCULAR VOLUME 89.1 FL (81.0-99.0); MEAN PLATELET VOLUME 7.3 FL (7.4-10.4); PLATELET COUNT 155 /CUMM (130-400); RBC DISTRIBUTION WIDTH 12.6 % (11.5-14.5); RED BLOOD CELL CT 4.32 /CUMM (4.20-5.40); WHITE BLOOD CELL COUNT 4.4 /CUMM (4.8-10.8)
--- NOTE | 2016-11-06 05:53 | PN- Thoracic Surgery ---
Subjective Subjective: feeling well, some soreness at incision. no cp/sob/palpitations/lightheadedness /syncope. HR in 60s Objective Vital Signs and I&Os Vital Signs Date Time Temp Pulse Resp B/P B/P Pulse O2 O2 Flow FiO2 Mean Ox Delivery Rate 11/06 0400 96 Nasal 2.0L Cannula 11/06 0000 97 Nasal 2.0L Cannula 11/06 0000 98.4 60 15 130/68 93 Nasal 2.0L Cannula 11/05 2000 97 Nasal 2.0L Cannula 11/05 1600 94 Nasal 2.0L Cannula 11/05 1600 97.4 78 17 139/68 94 Nasal 2.0L Cannula 11/05 1140 97.5 26 18 112/50 94 Room Air 11/05 1128 97 Room Air VS now: HR 65 129/63 Intake & Output 11/06 0800 11/06 0000 11/05 1600 11/05 0800 11/05 0000 11/04 1600 Intake Total 390 Output Total 195 Balance 195 Intake, IV 70 Intake, Oral 320 Output, Urine 195 Patient 114 lb 114 lb Weight Weight Bed scale Measurement Method Physical Exam: GEN: NAD CARD: s1s2 rate in 60s PULM: CTAB EXT: calves soft nt bl INCISION: bulky dressing CDI, gauze dressing minimal serosang staining, some mild eccymoses Assessment/Plan Assessment/Plan A: POD1 sp PPM insertion for complete heart block, now with paced rhythm in 60s. P: prn pain meds for incisional pain abx x23hr ppx postop care per primary team will dw attending Core Measures/Miscellaneous Venous Thromboembolism VTE Risk Factors: Acute medical illness VTE Contraindications: No Contraindications VTE Diagnosis: No VTE Type: NONE VTE Confirmed by (Test): NONE Beta Víctor Is Beta Víctor a Home Med? No Antibiotics Is Patient on Antibiotics? Yes If Yes: prophylaxis
--- NOTE | 2016-11-06 06:54 | PN- Housestaff ---
Subjective Follow-up For: Complete Heart Block Tele-Events Since Last Visit: Paced Rhythm HR 58-74 BP 113/-136/55-63 O2 92-96% on Room Air RR 14-17 Subjective: Patient seen and examined. She is seen lying in bed with her head elevated. She appears to be in no acute distress. She reports sleeping well but admits to some pain on the back of her head where she suffered a headstrike at home just prior to admission. She was given tylenol for this pain that resolved her pain. She otherwise admits to some left chest wall discomfort that she attributes to the pacemaker placement yesterday and isn't concerned about it. She otherwise denies any chest pain, palpitations, or shortness of breath. Additionally she denies any fever, chills, lightheadedness/dizziness, nausea, vomiting, diarrhea, or further episodes of loss of consciousness. Review of Systems Constitutional: Reports: see HPI. Objective Last 24 Hrs of Vital Signs/I&O Vital Signs Date Time Temp Pulse Resp B/P B/P Pulse O2 O2 Flow FiO2 Mean Ox Delivery Rate 11/06 0400 96 Nasal 2.0L Cannula 11/06 0000 97 Nasal 2.0L Cannula 11/06 0000 98.4 60 15 130/68 93 Nasal 2.0L Cannula 11/05 2000 97 Nasal 2.0L Cannula 11/05 1600 94 Nasal 2.0L Cannula 11/05 1600 97.4 78 17 139/68 94 Nasal 2.0L Cannula 11/05 1140 97.5 26 18 112/50 94 Room Air 11/05 1128 97 Room Air Intake & Output 11/06 0800 11/06 0000 11/05 1600 Intake Total 60 390 Output Total 800 195 Balance -740 195 Intake, IV 70 Intake, Oral 60 320 Output, Urine 800 195 Patient 51.71 kg 51.71 kg Weight Weight Bed scale Measurement Method Physical Exam General Appearance: Alert, Oriented X3, Cooperative, No Acute Distress Other Physical Findings: General-well developed, thin elderly woman in no acute distress HEENT-small area of tenderness on posterior scalp without fluctuance/drainage, PERRL, EOMI, anicteric sclera Neck-Supple, no JVD Cardio/Chest-S1, S2 w/o m/g/r;RRR, surgical dressing in place in upper left chest wall with minor associated tenderness and no surrounding erythema/drainage Lung-CTA Bilaterally Abdomen-Soft, nontender, nondistended, bowel sounds intact Neuro-Awake and alert, oriented to person/place/time, CN II - XII grossly intact Ext-normal pulses, no cyanosis/clubbing/edema Current Medications: Current Medications Sig/Beth Start time Last Medication Dose Route Stop Time Status Admin Acetaminophen 650 MG Q6P PRN 11/05 1600 AC 11/05 PO 2243 Cefazolin Sodium 2 GM IQ8 11/05 2200 AC 11/05 N/A 1 UNIT IV 11/06 0829 2143 Magnesium Oxide 400 MG ONE ONE 11/06 0700 DC PO 11/06 0701 Oxycodone/ 1 TAB Q6P PRN 11/05 1630 AC Acetaminophen PO Oxycodone/ 2 TAB Q6P PRN 11/05 1630 AC Acetaminophen PO Potassium Chloride 40 MEQ ONCE ONE 11/06 07 DC PO 11/06 07 Last 24 Hrs of Lab/Tj Results Last 24 Hrs of Labs/Mics: Laboratory Tests 11/06/16 0445: Anion Gap 9, Estimated GFR > 60, Glucose 95, Calcium 9.0, Phosphorus 3.7, Magnesium 1.8, Total Bilirubin 0.9, AST 33, ALT 47, Albumin 3.8, CBC w Diff NO MAN DIFF REQ, RBC 4.32, MCV 89.1, MCH 30.2, RDW 12.6, MPV 7.3 L, Gran % 67.4, Lymphocytes % 21.7, Monocytes % 8.9, Eosinophils % 1.7, Basophils % 0.3, Absolute Granulocytes 3.0, Absolute Lymphocytes 1.0 L, Absolute Monocytes 0.4, Absolute Eosinophils 0.1, Absolute Basophils 0, PUBS MCHC 33.9 11/05/162199: Troponin I 0.19 *H 11/05/16 163: Troponin I 0.20 *H, Urine Color YEL, Urine Clarity CLEAR, Urine pH 7.5, Ur Specific [place] 1.015, Urine Protein TRACE H, Urine Ketones 15 H, Urine Nitrite NEG, Urine Bilirubin NEG, Urine Urobilinogen 0.2, Ur Leukocyte Esterase NEG, Ur Microscopic SEDIMENT EXAMINED, Urine RBC 15-25 H, Urine WBC RARE, Ur Epithelial Cells FEW, Hyaline Casts RARE H, Granular Casts RARE H, Urine Hemoglobin SMALL H, Urine Glucose NEG 11/05/16 1116: PT 12.1, INR 1.15, APTT 31 11/05/16 1038: PT Cancelled, INR Cancelled 11/05/16 1030: Anion Gap 12, Estimated GFR > 60, BUN/Creatinine Ratio 26.7 H, Glucose 160 H, Calcium 9.7, Total Bilirubin 0.9, AST 38 H, ALT 52, Alkaline Phosphatase 86, Troponin I < 0.01, Total Protein 6.9, Albumin 4.5, Globulin 2.4, Albumin/ Globulin Ratio 1.9, CBC w Diff NO MAN DIFF REQ, RBC 4.61, MCV 88.8, MCH 30.2, RDW 12.9, MPV 7.6, Gran % 58.1, Lymphocytes % 34.2, Monocytes % 6.0, Eosinophils % 1.2, Basophils % 0.5, Absolute Granulocytes 2.8, Absolute Lymphocytes 1.7, Absolute Monocytes 0.3, Absolute Eosinophils 0.1, Absolute Basophils 0, PUBS MCHC 33.9 Microbiology 11/05 163 URINE ROUT: Urine Culture - RECD 11/05 163 UPPER RESP: Surveillance Culture - RECD 11/05 163 GI: Surveillance Culture - RECD Assessment/Plan Assessment: 86 year old woman with multiple medical problems brought brought in by ambulance after suffering a syncopal episode at home with headstrike and loss of consciousness. Problem List: -Syncope with Complete Heart Block s/p pacemaker -Elevated troponin secondary to demand ischemia -Orthostatic hypotension -Hypertension -Hyperlipidemia -Arthritis Patient reports feeling well today and denies any further complaints other than minor associated pain that she attributes to the headstrike and pacemaker placement. Telemetry demonstrates an adequately paced rhythm overnight without episodes of bradycardia. Troponins were initially elevated and have subsequently trended down without any EKG changes. Aspirin/Statin and pharmacologic DVT PPx started. PT evaluation determined that patient was an assist of one and may benefit from home physical therapy. She is downgraded from ICU but continued on telemetry. Plan: -Transfer to telemetry -Amlodipine held, restart as needed -Aspirin/Statin -Cardio following -PT eval: assist 1, Home Physical therapy -Pain control with Acetaminophen/Percocet -Heart healthy diet -DVT Prophylaxis with ALPS/Subcutaneous heparin -DNR/DNI Problem List: 1. Third degree heart block Pain Ratin Pain Location: Posterior head Left chest wall Pain Goal: Pain 4 or less Pain Plan: See assessment Tomorrow's Labs & Rationales: CBC BEP Consulting Request: Consulting Specialty: Cardiology
[2016-11-06 08:00] VITALS: BP 130/60
--- NOTE | 2016-11-06 09:18 | Patient Discharge Instructions ---
Discharge Instructions General Discharge Information You were seen/treated for: complete heart block You had these procedures: dual chamber pacemaker Special Instructions: Follow up with your primary care provider and mill supervisor in one week after discharge. Continue all your previous home medications except amlodipine. Diet Continue normal diet: Yes Activity Full Activity/No Limits: Yes Acute Coronary Syndrome Inclusion Criteria At DC or during hospital stay patient has or had the following: ACS DIAGNOSIS No Discharge Core Measures Meds if any: Prescribed or Continued at Discharge Meds if any: NOT Prescribed or Continued at Discharge Congestive Heart Failure Inclusion Criteria At DC or during hospital stay patient has or had the following: CHF DIAGNOSIS No Discharge Core Measures Meds if any: Prescribed or Continued at Discharge Meds if any: NOT Prescribed or Continued at Discharge Cerebrovascular accident Inclusion Criteria At DC or during hospital stay patient has or had the following: CVA/TIA Diagnosis No Discharge Core Measures Meds if any: Prescribed or Continued at Discharge Meds if any: NOT Prescribed or Continued at Discharge Venous thromboembolism Inclusion Criteria VTE Diagnosis No VTE Type NONE VTE Confirmed by (Test) NONE Discharge Core Measures - Per Current guidelines, there needs to be overlap - treatment for the first 5 days of Warfarin therapy. - If discharged on Warfarin prior to 5 days of - overlap therapy, the patient will need to be - assessed for post discharge needs including - *Post discharge parental anticoagulation - *Warfarin and/or parental anticoagulation education - *Follow up date to check INR post discharge At least 5 days overlap therapy as Inpatient No Meds if any: Prescribed or Continued at Discharge Note: Overlap Therapy is Warfarin and Anticoagulant Meds if any: NOT Prescribed or Continued at Discharge
--- NOTE | 2016-11-06 09:31 | PN- Cardiology ---
Subjective Subjective: Patient feels well overall. Only complains of incisional pain at the pacer site along with headache post fall. Review of Systems: Eyes no blurred or double vision Ears no deafness or ringing Nose and throat no recurrent sinusitis Lungs per history of present illness Heart per history of present illness Abdomen no nausea vomiting Musculoskeletal occasional muscle and joint pains Psych no anxiety or depression Neuro without recurrent headache or seizures Endocrine no heat or cold intolerance Objective Vital Signs and I&Os Vital Signs Date Time Temp Pulse Resp B/P B/P Pulse O2 O2 Flow FiO2 Mean Ox Delivery Rate 11/06 0800 97.8 82 22 130/60 95 Nasal 2.0L Cannula 11/06 0800 96 Nasal 2.0L Cannula 11/06 0400 96 Nasal 2.0L Cannula 11/06 0000 97 Nasal 2.0L Cannula 11/06 0000 98.4 60 15 130/68 93 Nasal 2.0L Cannula 11/05 2000 97 Nasal 2.0L Cannula 11/05 1600 94 Nasal 2.0L Cannula 11/05 1600 97.4 78 17 139/68 94 Nasal 2.0L Cannula 11/05 1140 97.5 26 18 112/50 94 Room Air 11/05 1128 97 Room Air Intake & Output 11/06 1600 11/06 0800 11/06 0000 11/05 1600 11/05 0800 11/05 0000 Intake Total 60 390 Output Total 800 195 Balance -740 195 Intake, IV 70 Intake, Oral 60 320 Output, Urine 800 195 Patient 114 lb 114 lb Weight Weight Bed scale Measurement Method Physical Exam: Patient is a well-developed well-nourished female appearing in no acute distress HEENT is unremarkable Neck is supple there is no JVD Lungs are clear Chest pacer site clean dry and intact Heart regular rhythm S1 and S2 are normal no murmurs gallops or rubs Abdomen bowel sounds positive Extremities without edema Current Medications: Current Medications Sig/Beth Start time Last Medication Dose Route Stop Time Status Admin Acetaminophen 650 MG Q6P PRN 11/05 1600 AC 11/05 PO 2243 Aspirin 81 MG DAILY 11/06 1000 AC PO Atorvastatin Calcium 80 MG 1700 11/06 1700 AC PO Cefazolin Sodium 2 GM IQ8 11/05 2200 DC 11/06 N/A 1 UNIT IV 11/06 0829 0753 Heparin Sodium 5,000 UNIT Q8 11/06 1400 AC (Porcine) SC Magnesium Oxide 400 MG ONE ONE 11/06 07 DC PO 11/06 07 Oxycodone/ 1 TAB Q6P PRN 11/05 1630 AC Acetaminophen PO Oxycodone/ 2 TAB Q6P PRN 11/05 1630 AC Acetaminophen PO Potassium Chloride 40 MEQ ONCE ONE 11/06 699 DC PO 11/06 07 Results Last 48 Hrs of Labs/Mics: Laboratory Tests 11/06/16 0445: Anion Gap 9, Estimated GFR > 60, Glucose 95, Calcium 9.0, Phosphorus 3.7, Magnesium 1.8, Total Bilirubin 0.9, AST 33, ALT 47, Albumin 3.8, TSH 1.360, Free T4 1.12, CBC w Diff NO MAN DIFF REQ, RBC 4.32, MCV 89.1, MCH 30.2, RDW 12.6, MPV 7.3 L, Gran % 67.4, Lymphocytes % 21.7, Monocytes % 8.9, Eosinophils % 1.7, Basophils % 0.3, Absolute Granulocytes 3.0, Absolute Lymphocytes 1.0 L, Absolute Monocytes 0.4, Absolute Eosinophils 0.1, Absolute Basophils 0, PUBS MCHC 33.9 11/05/16 2200: Troponin I 0.19 *H 11/05/16 1630: Troponin I 0.20 *H, Urine Color YEL, Urine Clarity CLEAR, Urine pH 7.5, Ur Specific [place] 1.015, Urine Protein TRACE H, Urine Ketones 15 H, Urine Nitrite NEG, Urine Bilirubin NEG, Urine Urobilinogen 0.2, Ur Leukocyte Esterase NEG, Ur Microscopic SEDIMENT EXAMINED, Urine RBC 15-25 H, Urine WBC RARE, Ur Epithelial Cells FEW, Hyaline Casts RARE H, Granular Casts RARE H, Urine Hemoglobin SMALL H, Urine Glucose NEG 11/05/16 1116: PT 12.1, INR 1.15, APTT 31 11/05/16 1038: PT Cancelled, INR Cancelled 11/05/16 1030: Anion Gap 12, Estimated GFR > 60, BUN/Creatinine Ratio 26.7 H, Glucose 160 H, Calcium 9.7, Total Bilirubin 0.9, AST 38 H, ALT 52, Alkaline Phosphatase 86, Troponin I < 0.01, Total Protein 6.9, Albumin 4.5, Globulin 2.4, Albumin/ Globulin Ratio 1.9, CBC w Diff NO MAN DIFF REQ, RBC 4.61, MCV 88.8, MCH 30.2, RDW 12.9, MPV 7.6, Gran % 58.1, Lymphocytes % 34.2, Monocytes % 6.0, Eosinophils % 1.2, Basophils % 0.5, Absolute Granulocytes 2.8, Absolute Lymphocytes 1.7, Absolute Monocytes 0.3, Absolute Eosinophils 0.1, Absolute Basophils 0, PUBS MCHC 33.9 Telemetry personally reviewed ventricular paced rhythm Assessment/Plan Assessment/Plan 1. Suncope due to sick sinus syndrome s/p pacemaker 2. Hypertension 3. Hyperlipidemia 4. Arthritis 5. Elevated troponin due to demand ischemia Recommendations 1. Continue current medications 2. PT to evaluate. If patient is stable and able to ambulate, plan is for discharge today. 3. Follow up in the office in one week Continue telemetry? Yes
--- NOTE | 2016-11-06 10:03 | Discharge Summary ---
Visit Information Visit Dates Admission Date: 11/05/16 Discharge Date: 11/07/16 Hospital Course Course Attending Physician: MEENA LIANG MD Primary Care Physician: ADITYA JUNG MD Consulting Request: Consulting Specialty: Cardiology Hospital Course: 86-year-old woman with past medical history of hypertension, hyperlipidemia, arthritis brought in by ambulance for evaluation after suffering a syncopal episode at home. Patient recalls folding her clothing when she suddenly "felt funny" and lost consciousness. She recalls waking up on the floor and reports feeling as if she hit her back and struck the back of her head. Her found her on the floor and contacted EMS. Paramedics reportedly found the patient to be in complete heart block in the field for which she was taken to the [facility] for further evaluation. ED course: -Vitals: Temp 97.5, HR 26, RR 18, BP 112/50, O2 94-97% on room air -Significant labs: WBC 4.9, Hgb/HCT 13.9/41.0, PLT 192, normal serum chemistries , glucose 160, troponin <0.01 -Studies: * EKG-complete heart block * Chest [id number] chest exam * CT head/cervical spine without IV contrast-no acute intracranial processes seen with several chronic changes Problem list: -Syncopal episode secondary to complete heart block -History of hypertension -History of hyperlipidemia Hospital course: Given patient's episode of syncope with EKG evidence of complete heart block in the field it is likely that patient patient lost consciousness due to her low ventricular rate. Cardiology and cardiothoracic surgery consults were placed from the ED and patient underwent emergent placement of an MRI compatible dual chamber pacemaker. Patient was subsequently admitted to the intensive care unit for further observation and postoperative care. Patient reported only minimal pain in the pacemaker placement site postoperatively but did admit to some lightheadedness/dizziness when moved out of bed to chair. Troponins were elevated most likely due to demand ischemia. Blood pressure demonstrated a 20 point systolic drop from sitting to standing. Patient's home meds were restarted and Wilks catheter was discontinued. PT evaluation determined patient was an assist of one and may benefit from home physical therapy. Patient was transferred to the telemetry floor for further observation prior to being discharged to home. She was instructed to follow up with her motor expert and primary care provider and to continue on all her previous medications. Allergies: Coded Allergies: fish derived (Severe, SEEING SPOTS - YELLOWFIN TUNA CAUSED THROMBOSIS 09/07/16) Significant Procedures: SERVICE DATE: 11/05/16- EXAM TYPE: RAD - XRY-CHEST XRAY, ONE VIEW ONLY IMPRESSION: Placement of pacemaker leads in right atrium and right ventricle. SERVICE DATE: 11/05/16-1033 EXAM TYPE: RAD - XRY-PORTABLE CHEST XRAY IMPRESSION: Unremarkable chest exam. SERVICE DATE: 11/05/16-1037 EXAM TYPE: CAT - CT CERV SPINE WO IV CONTRAST; CT HEAD WO IV CONTRAST IMPRESSION: No acute intracranial process seen. Age-related cerebral atrophy with chronic small vessel ischemic changes. Grade 1 anterolisthesis C4 over C5 and C7 over T1. There are degenerative disc changes with posterior spondylosis C5-C6 and C6-C7 disc levels. No visible acute fracture or dislocation seen in cervical spine. SERVICE DATE: 11/05/16-1403 EXAM TYPE: RAD - XRY-PORTABLE CHEST XRAY IMPRESSION: Post procedural changes without evidence of complication. Operative/Inv Procedure Report Surgery Date: 11/05/16 Name of Procedure: MRI compatible dual-chamber pacemaker Pre-Operative Diagnosis: Third-degree heart block Post-Operative Diagnosis: Same Estimated Blood Loss: scant Surgeon/Air Export Agent: MONTEZ WORTHY,ANABELLE Quick JR Anesthesia: general endotracheal tube Operative/Procedure Note Note: After placement of monitoring lines and induction of general anesthesia the patient became even more bradycardic with a heart rate of 15. The percutaneous pacemaker was started and she did capture intermittently with a current of 150 mA and a heart rate of 70 providing an adequate pulse and blood pressure. Her left chest was then prepped and draped in a sterile fashion. An incision was made in the deltopectoral groove and carried down to pretty pectoralis fascia. There was no cephalic vein seen so the patient was placed in Trendelenburg position and the left subclavian vein was cannulated percutaneously with a wire passed into the right atrium under fluoroscopic guidance. A 9 Setswana sheath dilator was passed over the wire and the wire was retained. A Medtronic lead model #[id number] was then advanced into the pulmonary artery under fluoroscopic guidance and withdrawn into the right ventricular cavity. The pacing threshold was at 0.5 V with a current of 0.8 mA and an impedance of 1100 ohms. Measured because of the extremely slow heart rate. At this point the patient was placed in VVI mode and was paced at a minimum rate of 60 from that point on and the percutaneous pacemaker was turned off. A 7 Setswana sheath dilator was then passed over the retained wire and a Medtronic atrial lead model #[id number] was then advanced to the right atrium and positioned in the right atrial appendage with a preformed curve to the lead. P waves were measured at 1.3 mV. The pacing threshold was at 0.7 V with a current of 0.8 mA and impedance of 613 ohms. A suture was placed around the subcutaneous tunnel for good hemostasis. The leads were then secured to prepectoralis fascia with Ethibond sutures. The leads were connected to an MRI compatible dual-chamber pacemaker Medtronic model number [id number]. A pacemaker pocket was formed above the prepectoralis fascia and hemostasis was achieved with the electrocautery. The pocket was flushed with antibiotic irrigation. The wound was closed in layers deep Vicryl suture followed by running Vicryl subarticular suture. The patient tolerated the procedure well and was brought to recovery room awake and extubated in stable condition. Disposition Summary Disposition Principal Diagnosis: Complete Heart Block Additional Diagnosis: Syncope Discharge Disposition: home health services Discharge Instructions General Discharge Information Code Status: Do Not Resucitate/Intubat Patient's Diet: Heart Healthy Diet Patient's Activity: Activity per PT assessment Follow-Up Instructions/Appts: Follow up with your Physical Therapist Center Manager Dr. Hernandez within one week of discharge. Follow up with your primary care provider after discharge. Continue all your previous home medicaitons. Medications at Discharge Discharge Medications: Stop taking the following medications: Amlodipine Besylate (Amlodipine Besylate) 2.5 MG TABLET ORAL DAILY Continue taking these medications: Rosuvastatin Calcium (Crestor) 20 MG TABLET 1 Tablet ORAL DAILY Comments: NOT GIVEN Aspirin (Children's Aspirin) 81 MG TAB.CHEW 1 Tablet ORAL DAILY Comments: Last Taken: 11/07/16 Time: 930 AM Multivitamin/Iron/Folic Acid (Centrum Complete Multivit Tab) 18 MG IRON-400 MCG TABLET 1 Tablet ORAL DAILY Comments: NOT GIVEN Timolol Maleate (Timoptic) 0.5 % DROPS 1 DROP Right Eye Every Morning Comments: Last Taken: 11/07/16 Time: 930 AM Cholecalciferol (Vitamin D3) (Vitamin D3) 5,000 UNIT TABLET 1 Tablet ORAL DAILY Comments: NOT GIVEN Propylene Glycol/Peg 400 (Systane 0.3-0.4% Eye Drops) 0.3 %-0.4 % DROPS 1 Drop In the eye 4 TIMES A DAY Comments: NOT GIVEN Sodium Chloride (Sochlor) 5 % OINT...G. 1 Application Right Eye Every night Gluc 2KCL/Chondr/Jl Hy/Hy AC (Glucosamine & Chondroitin Cap) (Unknown Strength ) CAPSULE Unknown Dose ORAL TWICE DAILY Comments: NOT GIVEN Fish Oil/Borage/Flax/Om3,6,9#1 ([place] 3-6-9 1,200 MG Softgel) 1,200 MG CAPSULE 1 Capsule ORAL DAILY Comments: NOT GIVEN Copies To: JAIR WORTHY,TOMASA Kitchen; ERICH WORTHY,ADITYA [place]; MONTEZ WORTHY,ANABELLE Quick JR
--- NOTE | 2016-11-06 10:58 | NUR ---
@0800-PT ALERT AND ORIENTED. CALM AND COOP. VSS. FOLLOWS COMMANDS. DENIES PAIN AT THIS TIME. PT STATES HAD ICEPACK ON BUMP OF HEAD THIS AM FROM FALL AT HOME. PT DENIES NEED FOR PAIN MANAGEMENT AT THIS TIME. CONT ON 2LNC. O2SAT 95%. DENIES SOB. PT NOT O2 DEP AND WILL ATTEMPT TO TITRATE TO RA THIS AM. DIM BS TO BASES. PT PACING HR 60-70S. PACER SITE NOTED TO LCW-PRESSURE DSG NOTED AND PER SURGICAL LEESA GE, -OK TO REMOVE PRESSURE DSG. PT HAS TELFA/TEGADERM DSG TO SITE WITH MIN OLD DRAINAGE NOTED. SMALL ECCHYMOTIC AREA NOTED TO SITE. BP STABLE. HH DIET PROVIDED. ABD SOFT. CARNEY IN PLACE WITH ADEQUATE URINE OUTPUT. SKIN INTACT. SLING L ARM INTACT. IV ABX ADMINISTERED ORD. K+ AND MAG+ REPLACEMENT NOTED. CONT TO MONITOR CLOSELY. CALL FLETCHER WITHIN REACH.
--- NOTE | 2016-11-06 11:15 | NUR ---
@1000-ANGELIKA ESCOBAR'D ORD. ASSISTED OOB TO CADEN CHAIR. PT C/O DIZZINESS WHEN MOVING FROM LAYING TO SITTING POSITION. BP SITTING 120/80, BP STANDING 100/80. REPORTED TO HOUSESTAFF. PT EVAL ORD. CONT TO MONITOR CLOSELY. PT DOWNGRADED TO TELE HOLD.
[2016-11-06 15:59] VITALS: BP 124/64
--- NOTE | 2016-11-06 17:11 | NUR ---
@1700-ASSISTED PT OOB AMBUALTED IN HALLWAY. DENIES DIZZINESS DURING AMBULATION. VOIDED ON BSC. UPON REPOSITIONING IN BED, C/O DIZZINESS WITH TURNING. RESOLVED WITHIN MINUTES. BP STABLE 120/80. NEW BLOOD NOTED ON PACER SITE DSG TO LOWER PORTION OF DSG. REPORTED TO SURGICAL PA. PER SURGICAL PA-REMOVE DSG AND PLACE NEW DSG-TELFA WITH TEGADERM. REPORT ANY NEW BLEEDING ON DSG. CONT TO MONITOR, CALL FLETCHER WITHIN REACH.
[2016-11-06 21:56] VITALS: BP 138/78
[2016-11-07 06:59] VITALS: BP 118/70
[2016-11-07 08:06] LABS: ABSOLUTE BASOPHIL COUNT 0 /CUMM (0.0-0.2); ABSOLUTE EOSINOPHIL COUNT 0.1 /CUMM (0.0-0.7); ABSOLUTE GRANULOCYTE CT 2.2 /CUMM (1.4-6.5); ABSOLUTE LYMPH COUNT 0.9 /CUMM (1.2-3.4); ABSOLUTE MONOCYTE COUNT 0.3 /CUMM (0.10-0.60); BASOPHIL % 0.2 % (0.0-2.0); EOSINOPHIL % 3.1 % (0-5); GRANULOCYTE % 61.7 % (42.2-75.2); HEMATOCRIT 39.4 % (37-47); MEAN CORPUSCULAR HGB 29.9 PG (27.0-31.0); MEAN CORPUSCULAR HGB CONC 33.5 G/DL (33.0-37.0); MEAN CORPUSCULAR VOLUME 89.4 FL (81.0-99.0); MEAN PLATELET VOLUME 7.6 FL (7.4-10.4); PLATELET COUNT 146 /CUMM (130-400); RBC DISTRIBUTION WIDTH 12.8 % (11.5-14.5); RED BLOOD CELL CT 4.41 /CUMM (4.20-5.40); WHITE BLOOD CELL COUNT 3.5 /CUMM (4.8-10.8)
--- NOTE | 2016-11-07 09:19 | PN- Housestaff ---
Subjective Follow-up For: Syncope Complete heart block s/p dual chamber pacemaker Subjective: Patient reports a pulling sensation at her surgical site with minimal drainage and discomfort at insertion site. New dressing was placed. No erythema or hematoma noted. Review of Systems Constitutional: Reports: see HPI. Objective Last 24 Hrs of Vital Signs/I&O Orthostat vitals: 140/80 Lying 138/80 Sitting 118/80 Standing Physical Exam General Appearance: Alert, Oriented X3, Cooperative, No Acute Distress Skin: Dry and intact at surgical site, no erythema, hematoma or drainage visualized HEENT: Atraumatic, PERRLA Neck: Supple, No JVD, No thryomegaly Cardiovascular: Normal S1, Normal S2, No Murmurs Lungs: Clear to Auscultation, Normal Air Movement Abdomen: Normal Bowel Sounds, Soft, No Tenderness Extremities: No Cyanosis, No Edema, No Tenderness/Swelling Assessment/Plan Assessment: A: Ms. Gar is a 86yo F with multiple medical problems brought brought in by ambulance after suffering a syncopal episode at home with headstrike and loss of consciousness.According to patient she was arranging her clothes and all of a sudden she felt funny and next thing she remembers found herself on floor. She does not remember exactly presyncopal symptoms but after waking up she was feeling better dizzy. per patient she fell down on her back and hit back of her head. Her called 911. P: 1. Syncope with Complete Heart Block s/p Medtronic pacemaker VVI mode, min HR 60 2. Elevated troponin secondary to demand ischemia 3. Orthostatic hypotension * orthostats pos 4. Hypertension * Amlodipine held, BP controlled * Continue ASA 5. Hyperlipidemia * Continue Atorvastatin 6. History of Arthritis * continue Tylenol Dispo- stable for discharge. PT eval: assist 1, Home Physical therapy Pain control with Acetaminophen/Percocet Heart healthy diet DVT Prophylaxis with ALPS/Subcutaneous heparin DNR/DNI Problem List: 1. Third degree heart block Pain Ratin Pain Location: N/A Pain Goal: Pain 4 or less Pain Plan: Tylenol, Percocet Tomorrow's Labs & Rationales: None Consulting Request: Consulting Specialty: Cardiology
[2016-11-07 09:29] VITALS: BP 140/80
--- NOTE | 2016-11-07 09:31 | NUR ---
ORTHOSTATIC VS COMPLETE. WHILE LYING DID C/O OF THE FEELING OF FALLING, WHEN SITTING C/O DIZZINESS, WHILE STANDING DID C/O OF DIZZINESS AND WAS UNABLE TO STAND WITHOUT HOLDING ON TO BED. VS DOCUMENTED ORDERED.
--- NOTE | 2016-11-07 13:59 | PN- Att Addend ---
Attending Addendum Attending Brief Note I have personally seen and examined this patient and directed her plan of care. 1. 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 Hypertension 3. Hyperlipidemia 4. Arthritis 5. Elevated troponin due to demand ischemia 6. History of left bundle branch block Patient is doing well today and remains hemodynamically stable. No evidence of significant discharge, erythema, or hematoma at the pacemaker site. Telemetry review shows normal pacer activity. She is currently stable for discharge as instructed to follow up in our office within 1 week. I have discussed the case with the patient, case management, and covering house staff at length today. Rohan Helms MD [facility]
== END 2016-11-07 13:40 | disposition home health service (06) | DRG 243 ==
LOC: ERH 10:17 → ENRESERV 14:43 → CRI 15:00 → CANRESERV 16:02 → ENRESERV 16:02 → CRI 20:14 → CMPBEDREQ 11-06 10:02 → 1NO 11-06 21:29 → ENPENDDIS 11-07 11:53 → 1NO 11-07 13:40
PROVIDERS: Emergency Medicine; Internal Medicine Interventional Cardiology; Student in an Organized Health Care Education/Training Program; ADMIT Internal Medicine
PROC: 0JH606Z Insertion of Pacemaker, Dual Chamber into Chest Subcutaneous Tissue and Fascia, Open Approach (ICD-10-PCS; principal; 2016-11-05)
PROC: 02H63JZ Insertion of Pacemaker Lead into Right Atrium, Percutaneous Approach (ICD-10-PCS; 2016-11-05)
PROC: 02HK3JZ Insertion of Pacemaker Lead into Right Ventricle, Percutaneous Approach (ICD-10-PCS; 2016-11-05)
DX: I44.2 Atrioventricular block, complete (principal); I24.8 Other forms of acute ischemic heart disease; I44.7 Left bundle-branch block, unspecified; W18.30XA Fall on same level, unspecified, initial encounter; Y93.79 Activity, other specified sports and athletics; Y92.009 Unspecified place in unspecified non-institutional (private) residence as the place of occurrence of the external cause; I10 Essential (primary) hypertension; E78.5 Hyperlipidemia, unspecified; M19.90 Unspecified osteoarthritis, unspecified site; Z87.891 Personal history of nicotine dependence; Z90.49 Acquired absence of other specified parts of digestive tract; Z90.710 Acquired absence of both cervix and uterus; I45.10 Unspecified right bundle-branch block; Z66 Do not resuscitate
CPT/HCPCS: 1NP; CCU; 36415; 81001; 82436; 87086; 93005; 93010; 97110-GO; 97116-GO; 97161-GP; 99291; C1785; C1898; J0690; J1644; J3490